=== PATIENT | female | born 1980 | race Hispanic/Latino ===

== ENCOUNTER 2017-10-10 01:48 | Emergency (ER) | payer BC ==
--- NOTE | 2017-10-10 02:39 | ED PDOC ---
HPI: General Adult Time Seen by Provider: 10/10/17 02:33 Chief Complaint (Provider): knee injury History Per: Patient Additional Complaint(s): 37-year-old female presents to emergency department with injury to right knee s/ p trip and fall while coming out of a restaurant this evening. Patient denies head injury or LOC. Patient able to bear weight but has pain when doing so. Laceration to right knee noted, patient states tetanus is up-to-date. Past Medical History Reviewed: Historical Data, Nursing Documentation, Vital Signs Vital Signs: Last Vital Signs Temp 97.6 F 10/10/17 02:28 Pulse 91 H 10/10/17 02:28 Resp 17 10/10/17 02:28 BP 115/72 10/10/17 02:28 Pulse Ox 96 10/10/17 03:04 - Medical History PMH: No Chronic Diseases - Surgical History Surgical History: No Surg Hx - Family History Family History: States: No Known Family Hx - Living Arrangements Living Arrangements: With Friends/Others - Social History Current smoker - smoking cessation education provided: No Alcohol: Social Drugs: Denies - Immunization History Hx Tetanus Toxoid Vaccination: Yes - Allergies Allergies/Adverse Reactions: Allergies Allergy/AdvReac Type Severity Reaction Status Date / Time amoxicillin [From Augmentin] Allergy RASH Verified 10/10/17 02:40 clavulanic acid Allergy RASH Verified 10/10/17 02:40 [From Augmentin] Review of Systems ROS Statement: Except As Marked, All Systems Reviewed And Found Negative Musculoskeletal: Positive for: Other (left knee injury) Physical Exam - Reviewed Nursing Documentation Reviewed: Yes Vital Signs Reviewed: Yes - Physical Exam Appears: Positive for: Well, Non-toxic, No Acute Distress Skin: Positive for: Normal Color. Negative for: Rash Eye Exam: Positive for: Normal appearance Cardiovascular/Chest: Positive for: Regular Rate, Rhythm Respiratory: Positive for: Normal Breath Sounds Extremity: Positive for: Other (2 cm laceration noted to right patellar region with mild active bleeding, decreased ROM of right knee, normal distal sensation) Neurologic/Psych: Positive for: Alert, Oriented - Laboratory Results Urine POC: Negative (patient refused test, states she takes OCP and is certain she is not ) - ECG O2 Sat by Pulse Oximetry: 96 Pulse Ox Interpretation: Normal - Other Rad Left knee x-ray X-Ray: Interpreted by Me, Viewed By Me X-Ray Interpretation: no fx, no dis, no FB Medical Decision Making Medical Decision Makin37 year old with right knee injury Plan: PO motrin and tylenol - meds were offered to patient but she declined. X-ray right knee Lac repair - patient agreed to lac repair by junior technical writer Patient was given wound care instructions. Procedures - Laceration/Wound Repair 2 cm right knee laceration Wound Length (cm): 2 Wound's Depth, Shape: superficial Wound Explored: clean Irrigated w/ Saline (ccs): 20 Betadine Prep?: Yes Volume Anesthetic (ccs): 10 Wound Debrided: minimal Wound Repaired With: Sutures Suture Size/Type: 5:0 Number of Sutures: 4 Layer Closure?: No Wound Complexity: Simple Sterile Dressing Applied?: Yes Splint Applied?: No Disposition - Clinical Impression Clinical Impression: Knee laceration - Patient ED Disposition Is Patient to be Admitted: No Counseled Patient/Family Regarding: Studies Performed, Diagnosis, Need For Followup - Disposition Referrals: Baylee Panchal MD [Staff Provider] - Disposition: Routine/Home Disposition Time: 03:02 Condition: STABLE Additional Instructions: Ice, rest and elevate affected area. Take [id number] Tylenol or Advil for pain as needed. Wash wound daily with soap and water and apply Neosporin once per day only. Wound check 2-3 days, suture removal 10-14 days. Instructions: Laceration Repair With Stitches (DC)
[2017-10-10 02:40] VITALS: BMI 52.9
[2017-10-10] MEDS ORDERED: Lidocaine 1% Inj (20ml) IJ STA ×2 (02:40→03:11)
[2017-10-10 02:58] VITALS: RESP 17; O2SAT 96
[2017-10-10] MEDS ORDERED: Lidocaine 1% MPF (30 ml) Inj ONE (03:05)
[2017-10-10] MEDS ORDERED: Lidocaine 1% MPF (30 ml) Inj INJ STA ×3 (03:07→03:50)
[2017-10-10] MEDS ORDERED: Povidone Iodine Topical 10% Sol ONE (03:14)
[2017-10-10 05:11] VITALS: BP 119/74; PULSE 84; TEMP 98
--- NOTE | 2017-10-10 07:37 | RAD ---
PROCEDURE: Right Knee Radiographs. HISTORY: trauma COMPARISON: None. FINDINGS: BONES: Normal. No fracture. JOINTS: Normal. No osteoarthritis. JOINT EFFUSION: None. OTHER FINDINGS: None. IMPRESSION: Normal radiographs of the right knee.
== END 2017-10-10 03:39 | disposition home or self-care (01) ==
LOC: H.ER 01:48
DX: S81.011A Laceration without foreign body, right knee, initial encounter (principal); W01.0XXA Fall on same level from slipping, tripping and stumbling without subsequent striking against object, initial encounter; Y92.89 Other specified places as the place of occurrence of the external cause; Z88.0 Allergy status to penicillin